=== PATIENT | female | born 2000 | race Caucasian/White ===

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

== ENCOUNTER 2018-04-09 08:18 | Emergency (ER) | payer OTHER ==
[~2018-04-09] VITALS: Ht 160 cm; Wt 59.0 kg
[2018-04-09 08:46] LABS: Source, Urine Clean Catch
[2018-04-09 08:49] LABS: Bilirubin, Urine Neg (Neg); Blood, Urine 4+ (Neg); Glucose Qualitative, Urine Neg (Neg); Ketones, Urine 1+ (Neg); Leukocyte Esterase, Urine 1+ (Neg); Nitrite, Urine Neg (Neg); Protein, Urine Neg (Neg); Specific Gravity, Urine 1.015 (1.003-1.022); Urobilinogen, Urine NORM (Normal)
[2018-04-09 09:04] LABS: Appearance, Urine Clear (Clear); Bacteria Mod /hpf; Color, Urine Yellow (P-Yellow); Squamous Epithelial Cells Mod /hpf (Few)
[2018-04-09 09:23] LABS: BASOPHILS ABSOLUTE AUTO 0.02 K/mm3 (0.00-0.23); BASOPHILS PERCENT AUTO 0 % (0-2); EOSINOPHILS ABSOLUTE AUTO 0.03 K/mm3 (0.00-0.68); EOSINOPHILS PERCENT AUTO 0 % (0-6); Hematocrit 43.5 % (33.0-51.0); IMMATURE GRAN ABSOLUTE AUTO 0.01 K/mm3 (0.00-0.10); IMMATURE GRAN PERCENT AUTO 0 % (0-1); LYMPHOCYTES ABSOLUTE AUTO 0.53 K/mm3 (0.84-5.20); LYMPHOCYTES PERCENT AUTO 7 % (21-46); MONOCYTES PERCENT AUTO 8 % (4-13); Mean Corpuscular HGB 30.2 pg (26.0-34.0); Mean Corpuscular HGB Conc 34.5 g/dL (31.5-36.5); Mean Corpuscular Volume 88 fL (80-100); Mean Platelet Volume 10.2 fL (9.1-12.4); NEUTROPHILS ABSOLUTE AUTO 6.44 K/mm3 (1.96-9.15); NEUTROPHILS PERCENT AUTO 84 % (41-73); Platelet Count 254 K/mm3 (150-400); RDW Coefficient Variation 11.6 % (11.7-14.2); RDW Standard Deviation 37.1 fL (35.1-46.3); Red Blood Cell Count 4.97 M/mm3 (3.80-5.20); White Blood Cell Count 7.63 K/mm3 (4.00-11.30)
[2018-04-09 09:38] LABS: Anion Gap 8 mmol/L (6-16); Blood Urea Nitrogen 10 mg/dL (8-21); Bun/Creatinine Ratio 14.6 (12.0-20.0); CO2, Blood 26 mmol/L (21-32); Calcium, Blood 8.5 mg/dL (8.5-10.1); Chloride, Blood 106 mmol/L (98-108); Creatinine, Blood 0.69 mg/dL (0.40-1.00); Glomerular Filtration Rate >60 (60-); Glucose, Blood 93 mg/dL (70-99); Potassium, Blood 3.7 mmol/L (3.5-5.5); Sodium, Blood 140 mmol/L (136-145)
[2018-04-09] MEDS ORDERED: Zofran Odt8 MG SL (09:51)
== END 2018-04-09 10:21 | disposition home or self-care (01) ==
LOC: ER 08:18
PROVIDERS: Physician Assistant
DX: J02.9 Acute pharyngitis, unspecified (principal); D64.9 Anemia, unspecified; Z88.0 Allergy status to penicillin; Z88.6 Allergy status to analgesic agent; Z79.899 Other long term (current) drug therapy
CPT/HCPCS: 36415; 80048; 81001; 81025; 85025; 86308; 87081; 87086; 87430; 99283; J1885

== ENCOUNTER → 2019-04-11 | Outpatient (CLI) | payer OTHER | END | disposition home or self-care (01) | LOC: LAB 16:33 → LAB SHORT 16:33 | DX: J02.9 Acute pharyngitis, unspecified (principal) | CPT/HCPCS: 87081 ==

== ENCOUNTER → 2019-06-22 | Outpatient (CLI) | payer OTHER | END | disposition home or self-care (01) | LOC: LAB SHORT 16:08 → LAB 16:08 | DX: J02.9 Acute pharyngitis, unspecified (principal) | CPT/HCPCS: 87081 ==

== ENCOUNTER 2019-06-24 12:04 | Emergency (ER) | payer OTHER ==
[~2019-06-24] VITALS: Ht 157.5 cm; Wt 58.1 kg
== END 2019-06-24 13:32 | disposition home or self-care (01) ==
LOC: ER 12:04
DX: T23.222A Burn of second degree of single left finger (nail) except thumb, initial encounter (principal); T31.0 Burns involving less than 10% of body surface; Z88.1 Allergy status to other antibiotic agents; Z88.0 Allergy status to penicillin; Z88.8 Allergy status to other drugs, medicaments and biological substances; X19.XXXA Contact with other heat and hot substances, initial encounter
CPT/HCPCS: 16020; 99283-25

== ENCOUNTER 2020-01-09 22:39 | Emergency (ER) | payer OTHER ==
[~2020-01-09] VITALS: Ht 160 cm; Wt 59.0 kg
[2020-01-09] MEDS ORDERED: Sudogest60 MG PO (23:46)
[2020-01-09] MEDS ORDERED: CEFD300 PO (23:46)
== END 2020-01-10 | disposition home or self-care (01) ==
LOC: ER 22:39
DX: R05 Cough (principal); H66.91 Otitis media, unspecified, right ear; F32.9 Major depressive disorder, single episode, unspecified; F41.9 Anxiety disorder, unspecified; Z88.1 Allergy status to other antibiotic agents; Z88.6 Allergy status to analgesic agent; Z88.0 Allergy status to penicillin
CPT/HCPCS: 99282

== ENCOUNTER 2020-01-17 20:31 | Emergency (ER) | payer OTHER ==
[~2020-01-17] VITALS: Ht 160 cm; Wt 59.0 kg
[~2020-01-17 20:31] MED LIST changes: +CEFD300 PO; +Sudogest60 MG PO
== END 2020-01-17 20:56 | disposition home or self-care (01) ==
LOC: ER 20:31
DX: B37.3 Candidiasis of vulva and vagina (principal); Z88.0 Allergy status to penicillin; Z88.6 Allergy status to analgesic agent
CPT/HCPCS: 99282

== ENCOUNTER → 2020-06-27 | Outpatient (CLI) | payer OTHER ==
[~2020-06-27] MED LIST changes: +Diflucan100 MG PO; +Flagyl500 MG PO
== END | disposition home or self-care (01) ==
LOC: LAB 09:50 → LAB SHORT 09:50
DX: J06.9 Acute upper respiratory infection, unspecified (principal); J02.9 Acute pharyngitis, unspecified
CPT/HCPCS: 87081

== ENCOUNTER → 2020-08-18 | Outpatient (CLI) | payer OTHER | END | disposition home or self-care (01) | LOC: LAB SHORT 14:33 → LAB 14:33 | PROVIDERS: Advanced Practice Midwife | DX: Z01.419 Encounter for gynecological examination (general) (routine) without abnormal findings (principal) | CPT/HCPCS: 87625; G0123 ==

== ENCOUNTER → 2021-09-16 | Outpatient (CLI) | payer OTHER ==
[2021-09-18 11:11] LABS: CHLAMYDIA TRACHOMATIS, NAA Negative (Negative)
== END | disposition home or self-care (01) ==
LOC: LAB 12:17 → LAB SHORT 12:17
PROVIDERS: Advanced Practice Midwife
DX: Z01.419 Encounter for gynecological examination (general) (routine) without abnormal findings (principal); Z11.3 Encounter for screening for infections with a predominantly sexual mode of transmission
CPT/HCPCS: 87491; 87591; G0123

== ENCOUNTER 2022-04-05 23:17 | Emergency (ER) | payer OTHER ==
[~2022-04-05] VITALS: Ht 160 cm; Wt 46.3 kg
[2022-04-05] MEDS ORDERED: CLIN150 PO (23:34)
== END 2022-04-05 23:38 | disposition home or self-care (01) ==
LOC: ER 23:17
DX: K04.7 Periapical abscess without sinus (principal); K08.89 Other specified disorders of teeth and supporting structures; Z88.0 Allergy status to penicillin; Z88.6 Allergy status to analgesic agent
CPT/HCPCS: 99282

== ENCOUNTER 2022-04-16 21:06 | Emergency (ER) | payer OTHER ==
[~2022-04-16] VITALS: Ht 160 cm; Wt 46.3 kg
[~2022-04-16 21:06] MED LIST changes: +CLIN150 PO
== END 2022-04-16 22:12 | disposition home or self-care (01) ==
LOC: ER 21:06
DX: K04.7 Periapical abscess without sinus (principal); Z88.6 Allergy status to analgesic agent; Z88.0 Allergy status to penicillin
CPT/HCPCS: 99282

== ENCOUNTER 2022-10-30 21:11 | Emergency (ER) | payer OTHER ==
[~2022-10-30] VITALS: Ht 162.6 cm; Wt 49.9 kg
== END 2022-10-30 21:56 | disposition home or self-care (01) ==
LOC: ER 21:11
DX: L03.011 Cellulitis of right finger (principal); Z88.0 Allergy status to penicillin; Z88.6 Allergy status to analgesic agent
CPT/HCPCS: 26010; 99283-25

== ENCOUNTER → 2022-11-09 | Outpatient (CLI) | payer OTHER ==
[2022-11-10 10:19] LABS: Candida species (DNA Probe) Negative (NEGATIVE); G. vaginalis (DNA Probe) Negative (NEGATIVE); T. vaginalis (DNA Probe) Negative (NEGATIVE)
== END | disposition home or self-care (01) ==
LOC: LAB SHORT 12:09 → LAB 12:09
PROVIDERS: Obstetrics & Gynecology
DX: N76.0 Acute vaginitis (principal); Z87.42 Personal history of other diseases of the female genital tract
CPT/HCPCS: 87480; 87510; 87660

== ENCOUNTER 2023-04-17 01:19 | Emergency (ER) | payer OTHER ==
[~2023-04-17] VITALS: Ht 162.6 cm; Wt 58.1 kg
[2023-04-17 01:43] VITALS: BP 141/92
== END 2023-04-17 02:20 | disposition home or self-care (01) ==
LOC: ER 01:19
DX: J02.9 Acute pharyngitis, unspecified (principal); Z88.0 Allergy status to penicillin
CPT/HCPCS: 87081; 87430; 99283

== ENCOUNTER → 2024-06-02 | Outpatient (CLI) | payer OTHER ==
[2024-06-02 15:01] LABS: BASOPHILS ABSOLUTE AUTO 0.03 K/mm3 (0.00-0.23); BASOPHILS PERCENT AUTO 1 % (0-2); EOSINOPHILS ABSOLUTE AUTO 0.13 K/mm3 (0.00-0.68); EOSINOPHILS PERCENT AUTO 2 % (0-6); Hematocrit 39.3 % (33.0-51.0); Hemoglobin 12.1 g/dL (11.5-16.0); IMMATURE GRAN ABSOLUTE AUTO 0.01 K/mm3 (0.00-0.10); IMMATURE GRAN PERCENT AUTO 0 % (0-1); LYMPHOCYTES ABSOLUTE AUTO 1.64 K/mm3 (0.84-5.20); LYMPHOCYTES PERCENT AUTO 30 % (21-46); MONOCYTES ABSOLUTE AUTO 0.55 K/mm3 (0.16-1.47); MONOCYTES PERCENT AUTO 10 % (4-13); Mean Corpuscular HGB 23.5 pg (26.0-34.0); Mean Corpuscular HGB Conc 30.8 g/dL (31.5-36.5); Mean Corpuscular Volume 77 fL (80-100); Mean Platelet Volume 10.5 fL (9.1-12.4); NEUTROPHILS ABSOLUTE AUTO 3.08 K/mm3 (1.96-9.15); NEUTROPHILS PERCENT AUTO 57 % (41-73); Platelet Count 338 K/mm3 (150-400); RDW Coefficient Variation 15.2 % (11.7-14.2); RDW Standard Deviation 41.5 fL (35.1-46.3); Red Blood Cell Count 5.14 M/mm3 (3.80-5.20); White Blood Cell Count 5.44 K/mm3 (4.00-11.30)
[2024-06-02 15:12] LABS: Albumin/Globulin Ratio 1.1 (0.8-1.8); Bilirubin, Total 0.5 mg/dL (0.1-1.0); Bun/Creatinine Ratio 18.6 (12.0-20.0); Calcium, Blood 8.6 mg/dL (8.5-10.1); Creatinine, Blood 0.7 mg/dL (0.40-1.00); Globulin, Blood 3.6 g/dL (2.2-4.0); Potassium, Blood 4.1 mmol/L (3.5-5.5); Total Protein, Blood 7.6 g/dL (6.4-8.2)
== END ==
LOC: LAB SHORT 14:57
PROVIDERS: Physician Assistant Medical
DX: R10.11 Right upper quadrant pain (principal)
CPT/HCPCS: 80053; 83690; 85025

== ENCOUNTER → 2024-07-05 | Outpatient (CLI) | payer OTHER | END | disposition home or self-care (01) | LOC: LAB SHORT 17:23 → LAB 17:23 | PROVIDERS: Advanced Practice Midwife | DX: Z01.419 Encounter for gynecological examination (general) (routine) without abnormal findings (principal) | CPT/HCPCS: G0123 ==

== ENCOUNTER 2025-05-25 22:07 | Emergency (ER) | payer OTHER ==
[~2025-05-25] VITALS: Ht 165.1 cm; Wt 69.4 kg
[2025-05-25 22:40] VITALS: BP 138/98
== END 2025-05-25 22:44 | disposition home or self-care (01) ==
LOC: ER 22:07
DX: H92.01 Otalgia, right ear (principal); Z88.0 Allergy status to penicillin
CPT/HCPCS: 99282

== ENCOUNTER 2025-09-22 14:22 | Emergency (ER) | payer OTHER ==
[~2025-09-22] VITALS: Ht 165.1 cm; Wt 74.8 kg
[2025-09-22 14:38] VITALS: BP 129/89
[2025-09-22 15:21] LABS: BASOPHILS ABSOLUTE AUTO 0.03 K/mm3 (0.00-0.23); BASOPHILS PERCENT AUTO 0 % (0-2); EOSINOPHILS ABSOLUTE AUTO 0.21 K/mm3 (0.00-0.68); EOSINOPHILS PERCENT AUTO 3 % (0-6); Hematocrit 33.5 % (33.0-51.0); Hemoglobin 10.0 g/dL (11.5-16.0); IMMATURE GRAN ABSOLUTE AUTO 0.01 K/mm3 (0.00-0.10); IMMATURE GRAN PERCENT AUTO 0 % (0-1); LYMPHOCYTES ABSOLUTE AUTO 1.30 K/mm3 (0.84-5.20); LYMPHOCYTES PERCENT AUTO 19 % (21-46); MONOCYTES ABSOLUTE AUTO 0.50 K/mm3 (0.16-1.47); MONOCYTES PERCENT AUTO 8 % (4-13); Mean Corpuscular HGB Conc 29.9 g/dL (31.5-36.5); Mean Corpuscular Volume 73 fL (80-100); NEUTROPHILS ABSOLUTE AUTO 4.64 K/mm3 (1.96-9.15); NEUTROPHILS PERCENT AUTO 70 % (41-73); NRBC ABSOLUTE 0.00 K/mm3 (0.00-0.02); NRBC Auto 0.0 /100 WBC (0.0-0.2); Platelet Count 354 K/mm3 (150-400); RDW Coefficient Variation 15.5 % (11.7-14.2); RDW Standard Deviation 40.8 fL (35.1-46.3)
[2025-09-22 15:43] LABS: Alanine Aminotransfer (ALT/SGP 21.0 U/L (12-78); Albumin, Blood 3.8 g/dL (3.4-5.0); Albumin/Globulin Ratio 1.0 (0.8-1.8); Anion Gap 7.0 mmol/L (3-11); Aspartate Aminotrans (AST/SGOT 15.0 U/L (12-37); Beta HCG, Quantitative, Serum 216.0 mIU/mL (0-3); Bilirubin, Total 0.3 mg/dL (0.1-1.0); Blood Urea Nitrogen 14.0 mg/dL (8-24); CO2, Blood 25.0 mmol/L (21-32); Calcium, Blood 8.5 mg/dL (8.5-10.1); Chloride, Blood 108.0 mmol/L (98-108); Creatinine, Blood 0.57 mg/dL (0.40-1.00); Globulin, Blood 3.7 g/dL (2.2-4.0); Glucose, Blood 75.0 mg/dL (70-99); Potassium, Blood 3.2 mmol/L (3.5-5.5); Sodium, Blood 137.0 mmol/L (136-145); Total Protein, Blood 7.5 g/dL (6.4-8.2)
[2025-09-22 16:20] LABS: Source, Urine Clean Catch
[2025-09-22 16:24] LABS: Bilirubin, Urine Neg (Neg); Color, Urine Yellow (P-Yellow); Glucose Qualitative, Urine Neg (Neg); Ketones, Urine Neg (Neg); Leukocyte Esterase, Urine 1+ (Neg); Protein, Urine 1+ (Neg); Specific Gravity, Urine 1.020 (1.003-1.022); Urobilinogen, Urine NORM (Normal)
[2025-09-22 16:34] LABS: Red Blood Cells, Urine 0-2 /hpf (0-2)
== END 2025-09-22 17:09 | disposition home or self-care (01) ==
LOC: ER 14:22
PROVIDERS: Student in an Organized Health Care Education/Training Program
DX: O99.891 Other specified diseases and conditions complicating pregnancy (principal); R10.20 Pelvic and perineal pain unspecified side; O99.281 Endocrine, nutritional and metabolic diseases complicating pregnancy, first trimester; E87.6 Hypokalemia; O99.011 Anemia complicating pregnancy, first trimester; D64.9 Anemia, unspecified; Z3A.01 Less than 8 weeks gestation of pregnancy; Z88.0 Allergy status to penicillin
CPT/HCPCS: 76801; 76817; 80053; 81001; 84702; 85025; 86900; 86901; 87086; 99284-25

== ENCOUNTER 2025-09-30 09:20 | Emergency (ER) | payer OTHER ==
[~2025-09-30] VITALS: Ht 165.1 cm; Wt 74.8 kg
[2025-09-30 10:36] LABS: Source, Urine Clean Catch
[2025-09-30 10:40] LABS: Bilirubin, Urine Neg (Neg); Color, Urine Yellow (P-Yellow); Glucose Qualitative, Urine Neg (Neg); Ketones, Urine Neg (Neg); Leukocyte Esterase, Urine 3+ (Neg); Protein, Urine 1+ (Neg); Specific Gravity, Urine 1.005 (1.003-1.022); Urobilinogen, Urine NORM (Normal)
[2025-09-30] MEDS ORDERED: ZOLOFT50 MG PO (10:58)
[2025-09-30] MEDS ORDERED: CEPH500 PO (12:20)
[2025-09-30 12:25] VITALS: BP 110/72
== END 2025-09-30 12:29 | disposition home or self-care (01) ==
LOC: ER 09:20
PROVIDERS: Emergency Medicine
DX: O20.9 Hemorrhage in early pregnancy, unspecified (principal); O98.511 Other viral diseases complicating pregnancy, first trimester; Z3A.01 Less than 8 weeks gestation of pregnancy; O23.91 Unspecified genitourinary tract infection in pregnancy, first trimester; R82.71 Bacteriuria; Z88.0 Allergy status to penicillin; Z79.899 Other long term (current) drug therapy
CPT/HCPCS: 76801; 76817; 81001; 84703; 86900; 86901; 87086; 96374; 99284-25